=== PATIENT | female | born 1940 | race Caucasian/White ===

== ENCOUNTER 2017-03-06 00:25 | Emergency (ER) | payer MEDICARE ==
[2017-03-06] MEDS ORDERED: Lactated Ringers 1,000 ML IV SCH (01:00)
[2017-03-06] MEDS ORDERED: Sodium Chloride 0.9% 10 ML Syringe FLUSH PRN (01:00)
[2017-03-06] MEDS ORDERED: Gentamicin 0.3% Ophth Soln 5 ML Bottle EYERT STA (01:04)
--- NOTE | 2017-03-06 01:04 | EDM.PDOC ---
ED HPI GENERAL MEDICAL PROBLEM - General Chief Complaint: Respiratory Problem Stated Complaint: COUGH / EYE OOZING / HX OF COPD Time Seen by Provider: 03/06/17 00:50 Source of Information: Reports: Patient, RN Notes Reviewed History Limitations: Reports: No Limitations - History of Present Illness INITIAL COMMENTS - FREE TEXT/NARRATIVE: 76-year-old female presents emergency department day complaint of shortness of breath and eye drainage of the right eye, she states she's been ill for about 5 days has had fevers on and off cough without sputum production and her eye started producing discharge this morning does have a known history of chronic obstructive pulmonary disease as well as chronic atrial fibrillation has not taken her medications today - Related Data Allergies Allergy/AdvReac Type Severity Reaction Status Date / Time No Known Allergies Allergy Verified 07/20/15 18:54 Home Meds: Home Meds Albuterol Sulfate [Proair Hfa] 2 puff INH Q6H 03/17/15 [History] Aspirin [Navneet Chewable Aspirin] 1 tab PO DAILY 03/17/15 [History] Calcium Carbonate [Tums] 1 tab PO ASDIRECTED 03/17/15 [History] Calcium Carbonate/Vitamin D3 [Calcium 600 + Vit D 200] 1 tab PO BID 03/17/15 [ History] EPINEPHrine [Epipen] 1 injection SUBCUT ASDIRECTED 03/17/15 [History] Metoprolol Succinate [Toprol XL] 25 mg PO BID 03/17/15 [History] Multivitamin [Multivitamins] 1 tab PO DAILY 03/17/15 [History] Naproxen Sodium [Aleve] 1 tab PO ASDIRECTED 03/17/15 [History] Simvastatin [Zocor] 20 mg PO DAILY 03/17/15 [History] Tiotropium [Spiriva HandiHaler] 1 cap INH DAILY 03/17/15 [History] Triamcinolone Acetonide [Triamcinolone Acetonide 0.1% Crm] 1 dose TOP ASDIRECTED 03/17/15 [History] diphenhydrAMINE HCl [Benadryl Allergy] 1 tab PO Q6H PRN 03/17/15 [History] Beclomethasone Dipropionate [Qvar] 40 mcg .XX BID 07/20/15 [History] Pantoprazole Sodium [Protonix] 40 mg PO DAILY 07/20/15 [History] Past Medical History HEENT History: Reports: Impaired Vision Cardiovascular History: Reports: High Cholesterol, Hypertension, SOB on Exertion Respiratory History: Reports: 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: Musculoskeletal History: Reports: Osteoporosis Neurological History: Reports: Concussion - Infectious Disease History Infectious Disease History: Reports: Chicken Pox, Measles, Mumps - Past Surgical History HEENT Surgical History: Reports: Other (See Below) Cardiovascular Surgical History: Reports: Other (See Below) GI Surgical History: Reports: Colonoscopy Social & Family History - Tobacco Use Smoking Status *Q: Never Smoker Second Hand Smoke Exposure: No - Caffeine Use Caffeine Use: Reports: Coffee, Tea - Recreational Drug Use Recreational Drug Use: No ED ROS GENERAL - Review of Systems Review Of Systems: See Below Constitutional: Reports: Fever, Chills HEENT: Reports: Eye Discharge Respiratory: Reports: Shortness of Breath, Cough. Denies: Sputum GI/Abdominal: Reports: No Symptoms : Reports: No Symptoms Musculoskeletal: Reports: No Symptoms Skin: Reports: No Symptoms Neurological: Reports: No Symptoms ED EXAM, GENERAL - Physical Exam Exam: See Below Free Text/Narrative:: General: Female, not in any distress, alert and oriented x3 HEENT: head is atraumatic normocephalic, eyes pupils equal round reactive to light, sclera markedly injected on the right with greenish discharge. Ears tympanic membranes clear and perez landmarks and light reflex are present bilaterally canals are clear. Nose no septal deviation, nares are clear, no blood present. Mouth mucosa is moist and pink no erythema or exudate noted in soft palate, tongue is midline uvula is midline, dentition is intact. Neck: Supple no thyromegaly no tracheal deviation. Nodes: Cervical nodes subclavicular nodes nontender no palpable lymphadenopathy noted. Lungs: clear to auscultation bilaterally with symmetrical respirations, no adventitious noise appreciated. CV: Regular rate and rhythm S1 and S2 appreciated no murmurs rubs or gallops noted. Abdomen: Soft, nontender, no palpable masses or organomegaly appreciated, no distention no guarding bowel sounds are present . Neuro: Cranial nerves II through XII grossly intact Skin: Warm and dry, intact Extremities: No lower extremity edema appreciated Course - Vital Signs Last Recorded V/S: Last Vital Signs Temp 99.0 F 03/06/17 00:44 Pulse 130 H 03/06/17 02:39 Resp 17 03/06/17 01:46 BP 177/81 H 03/06/17 02:39 Pulse Ox 97 03/06/17 01:46 - Orders/Labs/Meds Orders: Active Orders 24 hr Category Date Time Status Cardiac Monitoring [RC] .As Directed Care 03/06/17 01:00 Active EKG Documentation Completion [RC] ASDIRECTED Care 03/06/17 01:01 Active Peripheral IV Care [RC] . DIRECTED Care 03/06/17 01:00 Active Chest 1V Frontal [CR] Stat Exams 03/06/17 01:01 Taken Lactated Ringers [Ringers, Lactated] 1,000 ml Med 03/06/17 01:00 Active IV .BOLUS Sodium Chloride 0.9% [Saline Flush] Med 03/06/17 01:00 Active 10 ml FLUSH ASDIRECTED PRN Peripheral IV Insertion Adult [OM.PC] Stat Oth 03/06/17 01:00 Ordered EKG 12 Lead [EK] Stat Ther 03/06/17 01:00 Ordered Medication Orders Lactated Ringer's (Ringers, Lactated) 1,000 mls @ 999 mls/hr IV .BOLUS MALAIKA Last Admin: 03/06/17 01:21 Dose: 999 mls/hr Sodium Chloride (Saline Flush) 10 ml FLUSH ASDIRECTED PRN PRN Reason: Keep Vein Open Last Admin: 03/06/17 01:21 Dose: 10 ml Labs: Laboratory Tests 03/06/17 03/06/17 03/06/17 Range/Units 01:15 01:15 01:15 WBC 14.1 H (4.5-11.0) K/uL RBC 4.72 (3.30-5.50) M/uL Hgb 12.8 (12.0-15.0) g/dL Hct 40.1 (36.0-48.0) % MCV 85 (80-98) fL MCH 27 (27-31) pg MCHC 32 (32-36) % Plt Count 281 (150-400) K/uL Neut % (Auto) 80 H (36-66) % Lymph % (Auto) 9 L (24-44) % [place] % (Auto) 9 H (2-6) % Eos % (Auto) 1 L (2-4) % Baso % (Auto) 0 (0-1) % Sodium 138 L (140-148) mmol/L Potassium 4.2 (3.6-5.2) mmol/L Chloride 102 (100-108) mmol/L Carbon Dioxide 26 (21-32) mmol/L Anion Gap 14.2 H (5.0-14.0) mmol/L BUN 15 (7-18) mg/dL Creatinine 1.1 H (0.6-1.0) mg/dL Est Cr Clr Drug Dosing 32.23 mL/min Estimated GFR (MDRD) 49 L (>60) Glucose 126 H (74-106) mg/dL Lactic Acid 1.4 (0.4-2.0) mmol/L Calcium 8.9 (8.5-10.1) mg/dL Total Bilirubin 0.6 D (0.2-1.0) mg/dL AST 65 H D (15-37) U/L ALT 87 H (12-78) U/L Alkaline Phosphatase 185 H (46-116) U/L Total Protein 7.0 (6.4-8.2) g/dL Albumin 3.3 L (3.4-5.0) g/dL Globulin 3.7 H (2.3-3.5) g/dL Albumin/Globulin Ratio 0.9 L (1.2-2.2) Meds: Medications Generic Name Dose Route Start Last Admin Trade Name Frereggie PRN Reason Stop Dose Admin Lactated Ringer's 1,000 mls @ 999 mls/hr 03/06/17 01:00 03/06/17 01:21 Ringers, Lactated IV 999 mls/hr .BOLUS MALAIKA Administration Sodium Chloride 10 ml 03/06/17 01:00 03/06/17 01:21 Saline Flush FLUSH 10 ml ASDIRECTED PRN Administration Keep Vein Open Discontinued Medications Generic Name Dose Route Start Last Admin Trade Name Freq PRN Reason Stop Dose Admin Gentamicin Sulfate 2 ml 03/06/17 01:04 03/06/17 01:23 Garamycin 0.3% Ophth Soln EYERT 03/06/17 01:05 3 drop NOW STA Administration Doxycycline Hyclate 100 mg/ 100 mls @ 100 mls/hr 03/06/17 02:50 03/06/17 03: 00 Sodium Chloride IV 03/06/17 03:49 100 mls/hr ONETIME ONE Administration Metoprolol Tartrate 50 mg 03/06/17 02:33 03/06/17 02:37 Lopressor PO 03/06/17 02:34 50 mg ONETIME ONE Administration Departure - Departure Time of Disposition: 06:18 Disposition: Home, Self-Care 01 Condition: Good Clinical Impression: Paroxysmal atrial fibrillation, Bronchitis Conjunctivitis Qualifiers: Conjunctivitis type: acute Acute conjunctivitis type: bacterial Laterality: right Qualified Code(s): H10.31 - Unspecified acute conjunctivitis, right eye - Discharge Information Referrals: PCP,None [Primary Care Provider] - Forms: ED Department Discharge Additional Instructions: Take full course of antibiotics, use the eyedrops every 4 hours until the eyes clear continue to use warm compresses to clear away discharge follow-up with your eye care provider on Tuesday of next week if no improvement. Call or return to the emergency department worsening of symptoms - My Orders Last 24 Hours: My Active Orders 03/06/17 01:00 Cardiac Monitoring [RC] .As Directed Peripheral IV Care [RC] . DIRECTED Lactated Ringers [Ringers, Lactated] 1,000 ml IV .BOLUS Sodium Chloride 0.9% [Saline Flush] 10 ml FLUSH ASDIRECTED PRN Peripheral IV Insertion Adult [OM.PC] Stat EKG 12 Lead [EK] Stat 03/06/17 01:01 EKG Documentation Completion [RC] ASDIRECTED Chest 1V Frontal [CR] Stat - Assessment/Plan Last 24 Hours: My Active Orders 03/06/17 01:00 Cardiac Monitoring [RC] .As Directed Peripheral IV Care [RC] . DIRECTED Lactated Ringers [Ringers, Lactated] 1,000 ml IV .BOLUS Sodium Chloride 0.9% [Saline Flush] 10 ml FLUSH ASDIRECTED PRN Peripheral IV Insertion Adult [OM.PC] Stat EKG 12 Lead [EK] Stat 03/06/17 01:01 EKG Documentation Completion [RC] ASDIRECTED Chest 1V Frontal [CR] Stat Plan: Assessment Acuity = acute Site and laterality = right eye conjunctivitis, bronchitis complicated patient with known history of paroxysmal atrial fibrillation Etiology = probable bacterial cause Manifestations = right eye discharge Location of injury = Home Lab values = WBC elevated at 14.1 consistent with leukocytosis creatinine elevated at 1.1 consistent chronic renal failure stage GIII a AST elevated at 65 ALTs elevated at 57 consistent mild elevated liver enzymes, albumin low at 3.3 consistent hypoalbuminemia, EKG demonstrates atrial fibrillation, chest x- ray I did review films myself I cannot appreciate any acute process, the official read from radiology is pending Plan She was restarted on her home medications after starting her metoprolol she did spontaneously convert she was started on gentamicin eyedrops this to be 1-2 drops in her right eye every 4 hours until clear, also started on doxycycline 100 mg by mouth twice a day 7 days was given an IV dose in the emergency department she is to follow-up with her eye care provider in 2 days if no improvement This note was dictated using [employer] voice recognition software please call with any questions on syntax or philippe.
[2017-03-06] MEDS ORDERED: Metoprolol Tartrate 50 MG Tab PO ONE (02:33)
[2017-03-06] MEDS ORDERED: Doxycycline 100 MG in Sodium Chloride 0.9% 100 ML IV ONE (02:50)
[2017-03-06 06:20] VITALS: BP 134/81
--- NOTE | 2017-03-08 09:19 | CR ---
Chest 1V Frontal INDICATION: Hypoxic COMPARISON: 03/17/2015 FINDINGS: AP portable chest. Heart size normal. No infiltrates or pleural effusions. Slightly elevated right hemidiaphragm probabl y unchanged given difference in technique.
== END 2017-03-06 06:25 | disposition home or self-care (01) ==
LOC: JP.ED 00:25
DX: I48.0 Paroxysmal atrial fibrillation (principal); J40 Bronchitis, not specified as acute or chronic; H10.31 Unspecified acute conjunctivitis, right eye; I10 Essential (primary) hypertension; E78.00 Pure hypercholesterolemia, unspecified; J44.9 Chronic obstructive pulmonary disease, unspecified; Z79.82 Long term (current) use of aspirin; Z79.899 Other long term (current) drug therapy
CPT/HCPCS: 36415; 71010; 80053; 83605; 85025; 93005; 96361; 96365; 99285; A9270; J7030; J7050; J7120; 93010; 99284

== ENCOUNTER 2017-09-25 11:51 | Emergency (ER) | payer MEDICARE ==
[2017-09-25 12:35] VITALS: BP 148/87
[2017-09-25] MEDS ORDERED: Acetaminophen/HYDROcodone 325-10 MG Tab PO ONE (13:05)
--- NOTE | 2017-09-25 13:18 | EDM.PDOC ---
ED HPI GENERAL MEDICAL PROBLEM - General Chief Complaint: Lower Extremity Injury/Pain Stated Complaint: PAIN SHOOTING THROUGH LEG Time Seen by Provider: 09/25/17 13:00 Source of Information: Reports: Patient History Limitations: Reports: No Limitations - History of Present Illness INITIAL COMMENTS - FREE TEXT/NARRATIVE: 76-year-old female who had an intravascular procedure, and ablation 5 days ago is in with left groin pain. The left and right groins were both used for access. She is on Xarelto. She was having some moderate pain up until the last 24 hours, it's become more significant and she's having trouble ambulating. No fever or chills. She does have significant bruising but no swelling or firmness. No redness or warmth. Onset: Gradual Duration: Day(s): (Pain has been present for 5 days, worse last 24 hours) Location: Reports: Lower Extremity, Left Quality: Reports: Pressure, Sharp Severity: Moderate Worsens with: Reports: Movement Associated Symptoms: Reports: No Other Symptoms - Related Data Allergies Allergy/AdvReac Type Severity Reaction Status Date / Time No Known Allergies Allergy Verified 07/20/15 18:54 Home Meds: Home Meds Calcium Carbonate [Tums] 1 tab PO ASDIRECTED 03/17/15 [History] Calcium Carbonate/Vitamin D3 [Calcium 600 + Vit D 200] 1 tab PO DAILY 03/17/15 [ History] EPINEPHrine [Epipen] 1 injection SUBCUT ASDIRECTED 03/17/15 [History] Metoprolol Succinate [Toprol XL] 50 mg PO BID 03/17/15 [History] Simvastatin [Zocor] 20 mg PO DAILY 03/17/15 [History] Tiotropium [Spiriva HandiHaler] 1 cap INH DAILY 03/17/15 [History] Triamcinolone Acetonide [Triamcinolone Acetonide 0.1% Crm] 1 dose TOP ASDIRECTED 03/17/15 [History] Pantoprazole Sodium [Protonix] 40 mg PO DAILY 07/20/15 [History] Fluticasone/Salmeterol [Advair 100-50] 1 inh PO DAILY 09/25/17 [History] Rivaroxaban [Xarelto] 15 mg PO DAILY 09/25/17 [History] Past Medical History HEENT History: Reports: Impaired Vision Cardiovascular History: Reports: Afib, High Cholesterol, Hypertension, SOB on Exertion 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: Musculoskeletal History: Reports: Osteoporosis Neurological History: Reports: Concussion - Infectious Disease History Infectious Disease History: Reports: Chicken Pox, Measles, Mumps, Rubella - Past Surgical History HEENT Surgical History: Reports: Other (See Below) Other HEENT Surgeries/Procedures: left ear skin graft on ear drum Cardiovascular Surgical History: Reports: Cardiac Ablation, Other (See Below) Other Cardiovascular Surgeries/Procedures: 09/19 cardiac ablation Respiratory Surgical History: Reports: None GI Surgical History: Reports: Colonoscopy Neurological Surgical History: Reports: None Social & Family History - Family History Family Medical History: Noncontributory - Tobacco Use Smoking Status *Q: Never Smoker Second Hand Smoke Exposure: No - Caffeine Use Caffeine Use: Reports: Coffee - Recreational Drug Use Recreational Drug Use: No Review of Systems - Review of Systems Review Of Systems: See Below Constitutional: Denies: Fever Respiratory: Denies: Shortness of Breath GI/Abdominal: Denies: Abdominal Pain, Nausea, Vomiting Skin: Reports: Bruising Neurological: Denies: Paresthesia Psychiatric: Reports: No Symptoms ED EXAM, GENERAL - Physical Exam Exam: See Below Exam Limited By: No Limitations General Appearance: Alert, No Apparent Distress Respiratory/Chest: No Respiratory Distress GI/Abdominal: Non-Tender Extremities: Other (Exam is otherwise limited to the lower extremities. There is ecchymosis in both groins, more in the left than right. There is no firmness , hematoma, redness or warmth. No distal peripheral edema.) Course - Vital Signs Last Recorded V/S: Last Vital Signs Temp 97.8 F 09/25/17 12:35 Pulse 86 09/25/17 12:35 Resp 17 09/25/17 12:35 BP 148/87 H 09/25/17 12:35 Pulse Ox 93 L 09/25/17 12:35 - Orders/Labs/Meds Meds: Medications Discontinued Medications Generic Name Dose Route Start Last Admin Trade Name Freq PRN Reason Stop Dose Admin Hydrocodone Bitart/Acetaminophen 1 tab 09/25/17 13:05 09/25/17 13:10 [place] 325-10 Mg PO 09/25/17 13:06 1 tab ONETIME ONE Administration - Re-Assessments/Exams Free Text/Narrative Re-Assessment/Exam: 09/25/17 13:17 Patient was given 10 mg [place] and observed for the next 30 minutes. 09/25/17 14:02 After 40 minutes the patient was able to move her leg with much less pain. She was discharged with 10 additional hydrocodone to use as prescribed for additional pain control, and has a recheck tomorrow in [place] with internal medicine, they can reexamine the leg at that time. Departure - Departure Time of Disposition: 14:16 Disposition: Home, Self-Care 01 Condition: Good Clinical Impression: Leg pain, left Contusion of leg, left Qualifiers: Encounter type: initial encounter Qualified Code(s): S80.12XA - Contusion of left lower leg, initial encounter - Discharge Information Instructions: Contusion, [id number] Referrals: Jeovany Brown MD [Primary Care Provider] - Forms: ED Department Discharge Care Plan Goals: Continue your current medications, add stronger pain medication as directed if needed. Continue activity as tolerated and recheck tomorrow as scheduled.
== END 2017-09-25 14:16 | disposition home or self-care (01) ==
LOC: JP.ED 11:51
DX: S80.12XA Contusion of left lower leg, initial encounter (principal); I10 Essential (primary) hypertension; E78.00 Pure hypercholesterolemia, unspecified; J44.9 Chronic obstructive pulmonary disease, unspecified; Z79.899 Other long term (current) drug therapy; X58.XXXA Exposure to other specified factors, initial encounter
CPT/HCPCS: 99283; A9270

== ENCOUNTER 2017-11-10 07:50 | Day surgery (SDC) | payer MEDICARE ==
[2017-11-10] MEDS: Dextrose 5%-Lactated Ringers 1,000 ML IV SCH (08:56)
[2017-11-10] MEDS ORDERED: Propofol 200 MG/20 ML SDV ONE (09:47)
[2017-11-10] MEDS ORDERED: fentaNYL 100 MCG/2 ML SDV ONE (09:47)
[2017-11-10] MEDS: Glycopyrrolate 0.2 MG/ML 2 ML SDV IVPUSH ONE (10:15)
[2017-11-10] MEDS ORDERED: Fluconazole/Normal Saline 200 MG in Premix Bag 1 BAG IV ONE (11:07)
[2017-11-10] MEDS: Ondansetron 4 MG/2 ML SDV IVPUSH ONE (12:26)
[2017-11-10 13:49] VITALS: BP 157/76
--- NOTE | 2017-11-16 14:19 | OR ---
DATE OF PROCEDURE: 11/10/2017 PREOPERATIVE DIAGNOSIS: Worsening gastroesophageal reflux disease. POSTOPERATIVE DIAGNOSES: 1. Moderate-sized hiatal hernia with active gastroesophageal reflux disease and wide open esophagogastric junction. 2. Fungal overgrowth of esophagus. OPERATIVE PROCEDURES: Esophagogastroduodenoscopy with biopsies of esophagogastric junction. ANESTHESIA: IV sedation. INDICATION FOR PROCEDURE: This is a 76-year-old presenting with worsening gastroesophageal reflux symptoms. After preoperative evaluation and discussion, she wished to proceed with upper GI endoscopy with biopsies and/or dilation as indicated. Potential risks including bleeding and perforation were discussed, and the patient wishes to proceed. DETAILS OF PROCEDURE: The patient was taken to the operating room and placed in a left lateral decubitus position. IV sedation was administered, after which the upper GI endoscope was passed orally through the length of the esophagus, into the stomach with retroflexion view of the fundus, and thereafter through the pyloric channel and into the junction of the third and fourth portions of the duodenum. Findings included normal hypopharynx, larynx, upper esophageal sphincter, and esophageal body. At the EG junction, the patient was noted to have a moderate hiatal hernia measuring around 2 to 3 cm and quite active gastroesophageal reflux disease with the distal esophageal mucosa being markedly edematous and friable. The patient had an essentially wide open esophagogastric junction related to the hiatal hernia. There was a fungal overgrowth in the distal half of the esophagus. There was no stricturing, plaquing, or gross evidence of neoplasia. Remainder of stomach and duodenal exams were unremarkable. At this point, biopsies were obtained from esophagogastric junction and sent for histologic evaluation. Minimal bleeding from the biopsy sites was seen, and the procedure then concluded. The patient was taken to the recovery room in a satisfactory condition. The patient on Protonix 40 mg a day along with Zantac 150 mg b.i.d. and despite that, she is having active gastroesophageal reflux disease. The plan will be to start the patient on Mycostatin swish and swallow 5 mL q.i.d. for the next five days. We will see the patient back on 11/16/2017 to discuss treatment options. Darryn Bedolla MD /[id number]
== END 2017-11-10 14:00 | disposition home or self-care (01) ==
LOC: JP.SDS 07:50
PROVIDERS: ATTEND Surgery
DX: K21.9 Gastro-esophageal reflux disease without esophagitis (principal); K20.9 Esophagitis, unspecified; K22.8 Other specified diseases of esophagus; K44.9 Diaphragmatic hernia without obstruction or gangrene; I10 Essential (primary) hypertension; J44.9 Chronic obstructive pulmonary disease, unspecified; I48.91 Unspecified atrial fibrillation
CPT/HCPCS: 43239; 88305; 88312; J2405; J2704; J3010; J3490; J7042

== ENCOUNTER 2018-03-13 06:53 | Emergency (ER) | payer MEDICARE ==
[2018-03-13 07:15] VITALS: BP 161/55
--- NOTE | 2018-03-13 07:42 | EDM.PDOC ---
ED HPI GENERAL MEDICAL PROBLEM - General Chief Complaint: General Stated Complaint: CHEST PAIN NOT HEART Time Seen by Provider: 03/13/18 07:20 Source of Information: Reports: Patient, RN Notes Reviewed History Limitations: Reports: No Limitations - History of Present Illness INITIAL COMMENTS - FREE TEXT/NARRATIVE: 77-year-old female presents to the emergency department today with complaint of painful red left breast, she thinks this is been ongoing for the last couple days she has no other symptoms fever nausea vomiting shortness of breath, she recently had hiatal hernia repair she is postop about 2 weeks she feels that has been going well for her she does have follow-up with her general surgeon in 2 days Left Breast Pain Score (Numeric/FACES): 4 - Related Data Allergies Allergy/AdvReac Type Severity Reaction Status Date / Time No Known Allergies Allergy Verified 03/03/18 08:14 Home Meds: Home Meds Calcium Carbonate/Vitamin D3 [Calcium 600 + Vit D 200] 1 tab PO DAILY 03/17/15 [ History] EPINEPHrine [Epipen] 1 injection SUBCUT ASDIRECTED 03/17/15 [History] Metoprolol Succinate [Toprol XL] 50 mg PO DAILY 03/17/15 [History] Simvastatin [Zocor] 20 mg PO DAILY 03/17/15 [History] Tiotropium [Spiriva HandiHaler] 1 cap INH DAILY 03/17/15 [History] Triamcinolone Acetonide [Triamcinolone Acetonide 0.1% Crm] 1 dose TOP ASDIRECTED 03/17/15 [History] Pantoprazole Sodium [Protonix] 40 mg PO DAILY 07/20/15 [History] Rivaroxaban [Xarelto] 15 mg PO DAILY 09/25/17 [History] Acetaminophen 500 mg PO Q6H 11/08/17 [History] Albuterol [Ventolin HFA] 2 puff PO Q6H PRN 11/08/17 [History] raNITIdine HCl [Ranitidine HCl] 150 mg PO BID 11/08/17 [History] Ascorbic Acid [Vitamin C] 500 mg PO DAILY 03/01/18 [History] Ferrous Sulfate, Dried [Iron] 125 mg PO DAILY 03/01/18 [History] Amoxicillin/Potassium Clav [Augmentin 875-125 Tablet] 1 each PO BID #14 tablet 03/13/18 [Rx] Past Medical History HEENT History: Reports: Allergic Rhinitis, Cataract, Hard of Hearing, Impaired Vision, Other (See Below) Other HEENT History: wears glasses Cardiovascular History: Reports: Afib, Arrhythmia, High Cholesterol, Hypertension Respiratory History: Reports: Asthma, COPD, SOB Gastrointestinal History: Reports: Gastritis, GERD, Hiatal Hernia Genitourinary History: Reports: Chronic Renal Insuffiency 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: Musculoskeletal History: Reports: Osteoporosis Neurological History: Reports: Concussion Endocrine/Metabolic History: Reports: Obesity/BMI 30+ Hematologic History: Reports: Anemia, Iron Deficiency Dermatologic History: Reports: Other (See Below) Other Dermatologic History: "white stuff on my feet" - Infectious Disease History Infectious Disease History: Reports: Chicken Pox, Measles, Mumps - Past Surgical History HEENT Surgical History: Reports: Other (See Below) Other HEENT Surgeries/Procedures: left ear skin graft on ear drum Cardiovascular Surgical History: Reports: Cardiac Ablation, Other (See Below) Other Cardiovascular Surgeries/Procedures: 09/19 cardiac ablation Respiratory Surgical History: Reports: None GI Surgical History: Reports: Colonoscopy, EGD Female Surgical History: Reports: None Neurological Surgical History: Reports: None Musculoskeletal Surgical History: Reports: None Social & Family History - Family History Family Medical History: Noncontributory - Tobacco Use Smoking Status *Q: Never Smoker - Caffeine Use Caffeine Use: Reports: Coffee - Recreational Drug Use Recreational Drug Use: No ED ROS GENERAL - Review of Systems Review Of Systems: See Below Constitutional: Denies: Fever, Chills HEENT: Reports: No Symptoms Respiratory: Reports: No Symptoms Cardiovascular: Reports: No Symptoms GI/Abdominal: Reports: No Symptoms : Reports: No Symptoms Skin: Reports: Rash ED EXAM, GENERAL - Physical Exam Exam: See Below Free Text/Narrative:: Examination of the left breast with patient's permission reveals erythema around the areola , areas warm to the touch and tender to the touch no breaks in the skin or appreciated. Surgical wounds of the abdomen are clean dry and intact Exam Limited By: No Limitations General Appearance: Alert, WD/WN, No Apparent Distress Respiratory/Chest: No Respiratory Distress, Lungs Clear, Normal Breath Sounds, No Accessory Muscle Use Cardiovascular: Regular Rate, Rhythm, No Murmur GI/Abdominal: Soft, Non-Tender Course - Vital Signs Last Recorded V/S: Last Vital Signs Temp 97.5 F 03/13/18 07:09 Pulse 66 03/13/18 07:09 Resp 17 03/13/18 07:09 BP 161/55 H 03/13/18 07:09 Pulse Ox 90 L 03/13/18 07:09 Departure - Departure Time of Disposition: 07:51 Disposition: Home, Self-Care 01 Condition: Good Clinical Impression: Mastitis, left, acute - Discharge Information Referrals: PCP,None [Primary Care Provider] - Additional Instructions: take full course of antibiotics, your antibiotics have been faxed to [facility] pharmacy, keep your follow-up appointment with general surgery on Tuesday of this week - Assessment/Plan Plan: Assessment Acuity = acute Site and laterality = nonlactating mastitis Etiology = suspicious for bacterial cause Manifestations = rash, pain Location of injury = Home Lab values = none Plan Elected to treat empirically with Augmentin 875 by mouth twice a day 7 days she has a follow-up with her general surgeon in 2 days, she will use Tylenol 3 for pain control that she has used in the past. This note was dictated using [employer] voice recognition software please call with any questions on syntax or grammar.
== END 2018-03-13 08:12 | disposition home or self-care (01) ==
LOC: JP.ED 06:53
DX: N61.0 Mastitis without abscess (principal); I12.9 Hypertensive chronic kidney disease with stage 1 through stage 4 chronic kidney disease, or unspecified chronic kidney disease; N18.9 Chronic kidney disease, unspecified; J44.9 Chronic obstructive pulmonary disease, unspecified; Z79.899 Other long term (current) drug therapy
CPT/HCPCS: 99283; 99284

== ENCOUNTER 2018-05-05 07:53 | Emergency (ER) | payer MEDICARE ==
[2018-05-05 09:56] VITALS: BP 164/77
--- NOTE | 2018-05-05 10:27 | EDM.PDOC ---
ED HPI GENERAL MEDICAL PROBLEM - General Chief Complaint: Gastrointestinal Problem Stated Complaint: VIA [facility] Time Seen by Provider: 05/05/18 10:27 Source of Information: Reports: Patient History Limitations: Reports: No Limitations - History of Present Illness INITIAL COMMENTS - FREE TEXT/NARRATIVE: This lady comes in possibly spur some rectal bleeding. She went to the bathroom this morning and she said there was a lot of blood in it. She denies any urinary symptoms. She had some type of hiatal hernia surgery at the end of February and ever since then she's had some vague abdominal pain off and on. She does take an anti-coagulant for atrial fibrillation. No new abdominal pain since then. She denies constipation and has a daily bowel movement. Colonoscopy 5 years ago. Lower Abdomen Pain Score (Numeric/FACES): 4 - Related Data Allergies Allergy/AdvReac Type Severity Reaction Status Date / Time bee venom protein (honey bee) Allergy Hives Verified 05/05/18 08:02 dog dander Allergy Hives Verified 05/05/18 08:02 Home Meds: Home Meds Calcium Carbonate/Vitamin D3 [Calcium 600 + Vit D 200] 1 tab PO DAILY 03/17/15 [ History] Metoprolol Succinate [Toprol XL] 50 mg PO DAILY 03/17/15 [History] Simvastatin [Zocor] 20 mg PO DAILY 03/17/15 [History] Tiotropium [Spiriva HandiHaler] 1 cap INH DAILY 03/17/15 [History] Pantoprazole Sodium [Protonix] 40 mg PO DAILY 07/20/15 [History] Rivaroxaban [Xarelto] 15 mg PO DAILY 09/25/17 [History] Acetaminophen 500 mg PO Q6H 11/08/17 [History] Albuterol [Ventolin HFA] 2 puff PO Q6H PRN 11/08/17 [History] Ascorbic Acid [Vitamin C] 500 mg PO DAILY 03/01/18 [History] Ferrous Sulfate, Dried [Iron] 125 mg PO DAILY 03/01/18 [History] Past Medical History HEENT History: Reports: Allergic Rhinitis, Cataract, Hard of Hearing, Impaired Vision, Other (See Below) Other HEENT History: wears glasses Cardiovascular History: Reports: Afib, Arrhythmia, High Cholesterol, Hypertension Respiratory History: Reports: Asthma, COPD, SOB Gastrointestinal History: Reports: Gastritis, GERD, Hiatal Hernia Genitourinary History: Reports: Chronic Renal Insuffiency [employer] HELPER History: Reports: Musculoskeletal History: Reports: Osteoporosis Neurological History: Reports: Concussion Endocrine/Metabolic History: Reports: Obesity/BMI 30+ Hematologic History: Reports: Anemia, Iron Deficiency Dermatologic History: Reports: Other (See Below) Other Dermatologic History: "white stuff on my feet" - Infectious Disease History Infectious Disease History: Reports: Chicken Pox, Measles, Mumps - Past Surgical History HEENT Surgical History: Reports: Other (See Below) Other HEENT Surgeries/Procedures: left ear skin graft on ear drum Cardiovascular Surgical History: Reports: Cardiac Ablation, Other (See Below) Other Cardiovascular Surgeries/Procedures: 09/19 cardiac ablation Respiratory Surgical History: Reports: None GI Surgical History: Reports: Colonoscopy, EGD Female Surgical History: Reports: None Neurological Surgical History: Reports: None Musculoskeletal Surgical History: Reports: None Social & Family History - Family History Family Medical History: Noncontributory - Tobacco Use Smoking Status *Q: Never Smoker - Caffeine Use Caffeine Use: Reports: Coffee - Recreational Drug Use Recreational Drug Use: No ED ROS GENERAL - Review of Systems Review Of Systems: See Below Constitutional: Reports: No Symptoms HEENT: Reports: No Symptoms Respiratory: Reports: No Symptoms Cardiovascular: Reports: No Symptoms Endocrine: Reports: No Symptoms GI/Abdominal: Reports: Abdominal Pain (See history of present illness) : Reports: No Symptoms Musculoskeletal: Reports: No Symptoms Skin: Reports: No Symptoms Neurological: Reports: No Symptoms Psychiatric: Reports: No Symptoms ED EXAM, GI/ABD - Physical Exam Exam: See Below Exam Limited By: No Limitations General Appearance: Alert, WD/WN, No Apparent Distress Respiratory/Chest: Lungs Clear Cardiovascular: Regular Rate, Rhythm GI/Abdominal Exam: Normal Bowel Sounds, Soft, Tender (Vague mild generalized tenderness. No masses) Rectal (Female) Exam: Normal Exam, Normal Rectal Tone, Other. No: Black Stool, Bloody Stool Back Exam: Normal Inspection Extremities: Normal Inspection Course - Vital Signs Last Recorded V/S: Last Vital Signs Temp 36.9 C 05/05/18 07:56 Pulse 68 05/05/18 09:54 Resp 16 05/05/18 09:54 BP 164/77 H 05/05/18 09:54 Pulse Ox 94 L 05/05/18 09:54 - Orders/Labs/Meds Orders: Active Orders 24 hr Category Date Time Status CULTURE URINE [RM] Stat Lab 05/05/18 10:16 Received Labs: Laboratory Tests 05/05/18 Range/Units 08:46 Urine Color Red Urine Appearance Turbid Urine pH 6.0 (4.5-8.0) Ur Specific [place] 1.020 (1.008-1.030) Urine Protein 100 H (NEGATIVE) mg/dL Urine Glucose (UA) Normal (NEGATIVE) mg/dL Urine Ketones Negative (NEGATIVE) mg/dL Urine Occult Blood Large (NEGATIVE) Urine Nitrite Negative (NEGATIVE) Urine Bilirubin Negative (NEGATIVE) Urine Urobilinogen Normal (NORMAL) mg/dL Ur Leukocyte Esterase Large (NEGATIVE) Urine RBC Packed H (0-5) Urine WBC 5-10 H (0-5) Ur Epithelial Cells Not seen Amorphous Sediment Not seen Urine Bacteria Many Urine Mucus Not seen - Re-Assessments/Exams Free Text/Narrative Re-Assessment/Exam: 05/05/18 10:31 Lab findings discussed with patient. She'll needed antibiotic or other urinary tract infection and will need to talk with her doctor about the positive Hemoccult. Her Dr. can decide whether or not she needs another colonoscopy. She should continue these are relative. She had problems with sulfa in the past she said it caused diarrhea. Departure - Departure Time of Disposition: 10:23 Disposition: Home, Self-Care 01 Condition: Fair Clinical Impression: Hemorrhagic cystitis - Discharge Information Referrals: PCP,None [Primary Care Provider] - Forms: ED Department Discharge Additional Instructions: You have a bladder infection that is causing the bleeding. This is very common especially if taking a blood thinner. Take Levaquin 500 mg daily for 1 week. You should get better quickly. Continue taking the blood thinner. If getting worse then contact your doctor or return to the ER. There was a trace of blood in the stool. Talk with your doctor about this. You should be seen in about a week. - My Orders Last 24 Hours: My Active Orders 05/05/18 10:16 CULTURE URINE [RM] Stat - Assessment/Plan Last 24 Hours: My Active Orders 05/05/18 10:16 CULTURE URINE [RM] Stat
== END 2018-05-05 10:55 | disposition home or self-care (01) ==
LOC: JP.ED 07:53
DX: N30.91 Cystitis, unspecified with hematuria (principal); I48.91 Unspecified atrial fibrillation; E78.00 Pure hypercholesterolemia, unspecified; I10 Essential (primary) hypertension; J44.9 Chronic obstructive pulmonary disease, unspecified; Z79.899 Other long term (current) drug therapy; Z91.030 Bee allergy status
CPT/HCPCS: 81001; 82272; 87086; 99283

== ENCOUNTER 2018-06-02 12:44 | Emergency (ER) | payer MEDICARE ==
--- NOTE | 2018-06-02 13:20 | EDM.PDOC ---
ED HPI GENERAL MEDICAL PROBLEM - General Chief Complaint: Gastrointestinal Problem Stated Complaint: DIARRHEA FOR 4 DAYS/WEAK Time Seen by Provider: 06/02/18 13:13 Source of Information: Reports: Patient History Limitations: Reports: No Limitations - History of Present Illness INITIAL COMMENTS - FREE TEXT/NARRATIVE: pt has had some episodes of marked diarrhea. Since feb she has had alot of antibiotics since feb. She has had episodes of diarrhea from time to time. Onset: Other ( Diarrhea started last nite and was very severe. She did have 10- 12 episodes and now she is better. ) Duration: Hour(s): Location: Reports: Abdomen Associated Symptoms: Reports: Weakness Middle Abdomen Pain Score (Numeric/FACES): 3 - Related Data Allergies Allergy/AdvReac Type Severity Reaction Status Date / Time bee venom protein (honey bee) Allergy Hives Verified 05/05/18 08:02 dog dander Allergy Hives Verified 05/05/18 08:02 Home Meds: Home Meds Calcium Carbonate/Vitamin D3 [Calcium 600 + Vit D 200] 1 tab PO DAILY 03/17/15 [ History] Metoprolol Succinate [Toprol XL] 50 mg PO DAILY 03/17/15 [History] Simvastatin [Zocor] 20 mg PO DAILY 03/17/15 [History] Tiotropium [Spiriva HandiHaler] 1 cap INH DAILY 03/17/15 [History] Pantoprazole Sodium [Protonix] 40 mg PO DAILY 07/20/15 [History] Rivaroxaban [Xarelto] 15 mg PO DAILY 09/25/17 [History] Acetaminophen 500 mg PO Q6H 11/08/17 [History] Albuterol [Ventolin HFA] 2 puff PO Q6H PRN 11/08/17 [History] Ascorbic Acid [Vitamin C] 500 mg PO DAILY 03/01/18 [History] Ferrous Sulfate, Dried [Iron] 125 mg PO DAILY 03/01/18 [History] Past Medical History HEENT History: Reports: Allergic Rhinitis, Cataract, Hard of Hearing, Impaired Vision, Other (See Below) Other HEENT History: wears glasses Cardiovascular History: Reports: Afib, Arrhythmia, High Cholesterol, Hypertension Respiratory History: Reports: Asthma, COPD, SOB Gastrointestinal History: Reports: Gastritis, GERD, Hiatal Hernia Genitourinary History: Reports: Chronic Renal Insuffiency 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: Musculoskeletal History: Reports: Osteoporosis Neurological History: Reports: Concussion Endocrine/Metabolic History: Reports: Obesity/BMI 30+ Hematologic History: Reports: Anemia, Iron Deficiency Dermatologic History: Reports: Other (See Below) Other Dermatologic History: "white stuff on my feet" - Infectious Disease History Infectious Disease History: Reports: Chicken Pox, Measles, Mumps - Past Surgical History HEENT Surgical History: Reports: Other (See Below) Other HEENT Surgeries/Procedures: left ear skin graft on ear drum Cardiovascular Surgical History: Reports: Cardiac Ablation, Other (See Below) Other Cardiovascular Surgeries/Procedures: 09/19 cardiac ablation Respiratory Surgical History: Reports: None GI Surgical History: Reports: Colonoscopy, EGD, Hernia Repair/Other Female Surgical History: Reports: Lithotripsy/ESWL Neurological Surgical History: Reports: None Musculoskeletal Surgical History: Reports: None Social & Family History - Family History Family Medical History: Noncontributory - Tobacco Use Smoking Status *Q: Never Smoker - Caffeine Use Caffeine Use: Reports: None - Recreational Drug Use Recreational Drug Use: No ED ROS GENERAL - Review of Systems Review Of Systems: See Below Constitutional: Reports: No Symptoms HEENT: Reports: No Symptoms Respiratory: Reports: No Symptoms Cardiovascular: Reports: No Symptoms Endocrine: Reports: No Symptoms GI/Abdominal: Reports: Diarrhea, Other ( episodes of severe diarrhea. ) : Reports: No Symptoms Musculoskeletal: Reports: No Symptoms Skin: Reports: No Symptoms ED EXAM, GI/ABD - Physical Exam Exam: See Below Text/Narrative:: pt arrived after having a marked episode of diarrhea at home. She has been having episodes on and off. She has been on alot of antibiotics since feb. Exam Limited By: No Limitations General Appearance: Alert, No Apparent Distress, Anxious Ears: Normal TMs Nose: Normal Inspection Throat/Mouth: Normal Inspection Head: Atraumatic Neck: Normal Inspection Respiratory/Chest: No Respiratory Distress Cardiovascular: Regular Rate, Rhythm, Tachycardia GI/Abdominal Exam: Tender, Other (mild diffuse tenderness) (Female) Exam: Deferred Rectal (Female) Exam: Deferred Back Exam: Normal Inspection Extremities: Normal Inspection Neurological: Alert, Oriented, Normal Cognition Course - Vital Signs Last Recorded V/S: Last Vital Signs Temp 35.5 C 06/02/18 13:08 Pulse 60 06/02/18 14:35 Resp 13 06/02/18 13:08 BP 123/48 L 06/02/18 14:35 Pulse Ox 97 06/02/18 14:35 - Orders/Labs/Meds Labs: Laboratory Tests 06/02/18 06/02/18 06/02/18 Range/Units 13:24 13:24 13:55 WBC 5.6 (4.5-11.0) K/uL RBC 4.71 (3.30-5.50) M/uL Hgb 13.4 (12.0-15.0) g/dL Hct 42.2 (36.0-48.0) % MCV 90 (80-98) fL MCH 29 (27-31) pg MCHC 32 (32-36) % Plt Count 255 (150-400) K/uL Neut % (Auto) 56 (36-66) % Lymph % (Auto) 26 (24-44) % [place] % (Auto) 13 H (2-6) % Eos % (Auto) 4 (2-4) % Baso % (Auto) 1 (0-1) % Sodium 138 L (140-148) mmol/L Potassium 4.2 (3.6-5.2) mmol/L Chloride 104 (100-108) mmol/L Carbon Dioxide 23 (21-32) mmol/L Anion Gap 15.2 H (5.0-14.0) mmol/L BUN 23 H D (7-18) mg/dL Creatinine 0.9 (0.6-1.0) mg/dL Est Cr Clr Drug Dosing 38.79 mL/min Estimated GFR (MDRD) > 60 (>60) Glucose 92 (74-106) mg/dL Calcium 8.8 (8.5-10.1) mg/dL Total Bilirubin 0.4 (0.2-1.0) mg/dL AST 40 H (15-37) U/L ALT 49 (12-78) U/L Alkaline Phosphatase 180 H (46-116) U/L C-Reactive Protein 1.51 H (0.0-0.3) mg/dL Total Protein 7.0 (6.4-8.2) g/dL Albumin 3.3 L (3.4-5.0) g/dL Globulin 3.7 H (2.3-3.5) g/dL Albumin/Globulin Ratio 0.9 L (1.2-2.2) Urine Color Urine Appearance Urine pH (4.5-8.0) Ur Specific [place] (1.008-1.030) Urine Protein (NEGATIVE) mg/dL Urine Glucose (UA) (NEGATIVE) mg/dL Urine Ketones (NEGATIVE) mg/dL Urine Occult Blood (NEGATIVE) Urine Nitrite (NEGATIVE) Urine Bilirubin (NEGATIVE) Urine Urobilinogen (NORMAL) mg/dL Ur Leukocyte Esterase (NEGATIVE) Urine RBC (0-5) Urine WBC (0-5) Ur Epithelial Cells Amorphous Sediment Urine Bacteria Urine Mucus 06/02/18 Range/Units 14:37 WBC (4.5-11.0) K/uL RBC (3.30-5.50) M/uL Hgb (12.0-15.0) g/dL Hct (36.0-48.0) % MCV (80-98) fL MCH (27-31) pg MCHC (32-36) % Plt Count (150-400) K/uL Neut % (Auto) (36-66) % Lymph % (Auto) (24-44) % [place] % (Auto) (2-6) % Eos % (Auto) (2-4) % Baso % (Auto) (0-1) % Sodium (140-148) mmol/L Potassium (3.6-5.2) mmol/L Chloride (100-108) mmol/L Carbon Dioxide (21-32) mmol/L Anion Gap (5.0-14.0) mmol/L BUN (7-18) mg/dL Creatinine (0.6-1.0) mg/dL Est Cr Clr Drug Dosing mL/min Estimated GFR (MDRD) (>60) Glucose (74-106) mg/dL Calcium (8.5-10.1) mg/dL Total Bilirubin (0.2-1.0) mg/dL AST (15-37) U/L ALT (12-78) U/L Alkaline Phosphatase (46-116) U/L C-Reactive Protein (0.0-0.3) mg/dL Total Protein (6.4-8.2) g/dL Albumin (3.4-5.0) g/dL Globulin (2.3-3.5) g/dL Albumin/Globulin Ratio (1.2-2.2) Urine Color Yellow Urine Appearance Slightly cloudy Urine pH 5.0 (4.5-8.0) Ur Specific [place] 1.015 (1.008-1.030) Urine Protein Negative (NEGATIVE) mg/dL Urine Glucose (UA) Normal (NEGATIVE) mg/dL Urine Ketones Negative (NEGATIVE) mg/dL Urine Occult Blood Large (NEGATIVE) Urine Nitrite Negative (NEGATIVE) Urine Bilirubin Negative (NEGATIVE) Urine Urobilinogen Normal (NORMAL) mg/dL Ur Leukocyte Esterase Negative (NEGATIVE) Urine RBC 10-20 H (0-5) Urine WBC 0-5 (0-5) Ur Epithelial Cells Many Amorphous Sediment Few Urine Bacteria Not seen Urine Mucus Not seen Meds: Medications Discontinued Medications Generic Name Dose Route Start Last Admin Trade Name Freq PRN Reason Stop Dose Admin Sodium Chloride 1,000 mls @ 999 mls/hr 06/02/18 13:45 06/02/18 14:32 Normal Saline IV 999 mls/hr ASDIRECTED MALAIKA Administration Lactobacillus Rhamnosus 1 cap 06/03/18 16:01 Culturelle PO 06/03/18 16:02 DAILY ONE Lactobacillus Rhamnosus 1 cap 06/02/18 16:16 06/02/18 16:26 Culturelle PO 06/02/18 16:17 1 cap NOW STA Administration - Re-Assessments/Exams Free Text/Narrative Re-Assessment/Exam: 06/02/18 16:04 pt was found to have normal lab work. She did not give stool to check for clostrium while in the ER. Will send equipment home with the pt so it is easier to collect. Departure - Departure Time of Disposition: 16:05 Disposition: Home, Self-Care 01 Condition: Fair Clinical Impression: Diarrhea, Dehydration - Discharge Information Instructions: Dehydration, Adult, [id number], Diarrhea, Adult, [id number], Probiotics Referrals: Jeovany Brown MD [Primary Care Provider] - Forms: ED Department Discharge Care Plan Goals: rtc with a stool fpr clost diff, stool culture and o and p., push fluids, after the speciman is collected bring to the ER.-- then start using imodium 1-2 tabs after each stool, probiotic daily for the next-3 weeks. rtc if this should get worse.
[2018-06-02] MEDS ORDERED: Sodium Chloride 0.9% 1,000 ML IV SCH (13:45)
[2018-06-02 14:49] VITALS: BP 123/48
[2018-06-02] MEDS ORDERED: Lactobacillus Rhamnosus GG (Probiotic) Cap PO STA (16:16)
[2018-06-03] MEDS ORDERED: Lactobacillus Rhamnosus GG (Probiotic) Cap PO ONE (16:01)
== END 2018-06-02 16:35 | disposition home or self-care (01) ==
LOC: JP.ED 12:44
DX: E86.0 Dehydration (principal); R19.7 Diarrhea, unspecified; I10 Essential (primary) hypertension; E78.00 Pure hypercholesterolemia, unspecified; J44.9 Chronic obstructive pulmonary disease, unspecified; K21.9 Gastro-esophageal reflux disease without esophagitis; Z79.899 Other long term (current) drug therapy; Z91.030 Bee allergy status; Z91.09 Other allergy status, other than to drugs and biological substances
CPT/HCPCS: 36415; 80053; 81001; 85025; 86140; 87046; 87177; 87209; 87493; 87899; 96360; 99284; A9270; J7030

== ENCOUNTER → 2018-06-14 | Outpatient (CLI) | payer MEDICARE ==
[~2018-06-14] MED LIST: Barium Sulfate 98% Powder for Susp 340 GM Bottle PO SCH
--- NOTE | 2018-06-14 13:47 | CR ---
Swallowing Function w Video CLINICAL HISTORY: Difficulty swallowing FINDINGS: Patient swallowed thin and thick barium without difficulty. There is no penetration of the airway. The patient had some mild oral phase delay with solids. The there was poor transport of food bolus through the esophagus likely representing presbyesophagus. The limited the lateral image suggests there is some moderate-sized hiatal hernia IMPRESSION: Mild oral phase difficulty Poor antegrade peristalsis in the thoracic esophagus and probable moderate-sized hiatal hernia. An upper GI should be considered See speech pathologist report
== END ==
LOC: JP.DI 08:44
PROVIDERS: ATTEND Surgery
DX: R13.13 Dysphagia, pharyngeal phase (principal); Z98.890 Other specified postprocedural states
CPT/HCPCS: 74230; 74230-26; 92611-GN

== ENCOUNTER 2019-01-12 08:28 | Day surgery (SDC) | payer MEDICARE ==
[2019-01-12] MEDS ORDERED: Dextrose 5%-Lactated Ringers 1,000 ML IV SCH (09:00)
[2019-01-12] MEDS ORDERED: fentaNYL 100 MCG/2 ML SDV ONE (09:42)
[2019-01-12] MEDS ORDERED: Propofol 200 MG/20 ML SDV ONE (09:42)
[2019-01-12] MEDS ORDERED: Iopamidol 612 MG/ML 30 ML SDV PO ONE (12:57)
[2019-01-12 14:06] VITALS: BP 153/63; PULSE 61
--- NOTE | 2019-01-12 14:24 | CRLCT ---
INDICATION: Abdominal pain. CT ABDOMEN AND PELVIS WITHOUT CONTRAST TECHNIQUE: Multidetector CT imaging was performed through the abdomen and pelvis without intravenous contrast administration. Oral contrast was given, however. Coronal and sagittal reconstructions were generated. COMPARISON: 05/19/2018 CT abdomen and pelvis. FINDINGS: Lower chest: Minimal bibasilar lung atelectasis or scarring. Liver: Within normal limits. Gallbladder and bile ducts: No gallbladder wall thickening or calcified gallstones. No biliary dilation identified. Pancreas: Unremarkable. Spleen: Normal. Adrenals: No nodules or masses. Kidneys, ureters, and urinary bladder: No urinary tract stones identified. Previously seen stone in the distal left ureter is no longer visualized. No hydronephrosis. Hypodensity in the lower pole of the left kidney consistent with a renal cyst, as before. No bladder mass or definite wall thickening. Gastrointestinal tract: Postoperative changes at the gastroesophageal junction, as before. Normal caliber small bowel without wall thickening or obstruction. The appendix is normal. There are multiple colon diverticula, most numerous in the sigmoid. Wall thickening of the mid sigmoid colon is noted, with adjacent fat stranding, consistent with diverticulitis. Vascular structures: Normal caliber abdominal aorta with mild atherosclerotic calcifications. Peritoneum: No free air, abscess, or significant free fluid. Lymph nodes: No pathologically enlarged nodes identified. Reproductive organs: No pelvic masses. Bones: Normal for age. IMPRESSION: 1. [id number] diverticulitis of the mid sigmoid colon. No evidence of perforation or abscess. 2. Nonacute additional findings as detailed above. DIONICIO CORTEZ MD [facility] Dictated by Blaine Cortez MD @ 01/12/2019 2:21:02 PM Dictated by: Blaine Cortez MD @ 01/12/2019 14:22:37 (Electronically Signed)
--- NOTE | 2019-01-15 13:25 | OR ---
DATE OF PROCEDURE: 01/12/2019 SURGEON: Darryn Bedolla MD PREOPERATIVE DIAGNOSIS: Anemia. POSTOPERATIVE DIAGNOSES: 1. Upper gastrointestinal endoscopy showing: a. Duodenum diverticulum. b. Intact Nadege fundoplication. c. No bleeding or areas of significant inflammation. 2. Incomplete colonoscopy to mid sigmoid colon with identification of limited colon diverticulosis. OPERATIVE PROCEDURE: 1. Esophagogastroduodenoscopy (44150). 2. Flexible colonoscopy (incomplete) (25616-55). ANESTHESIA: IV sedation. INDICATION FOR PROCEDURE: This is a 78-year-old female presenting with a picture of anemia. She is undergoing upper and lower endoscopy to try to identify any possible GI bleeding sites. Potential risks of the procedure including bleeding and perforation were discussed, and the patient wishes to proceed. Of note, a repeat CBC was obtained today, which showed a hemoglobin now having crept up to 10.8. The MCH and MCHC remain below normal. DETAILS OF PROCEDURE: The patient was taken to the operating room and placed in a left lateral decubitus position. IV sedation was administered, after which the upper GI endoscope was passed orally through the length of the esophagus into the stomach with retroflexion view of the fundus and thereafter through the pyloric channel and into the proximal duodenum. Findings included normal hypopharynx, larynx, upper esophageal sphincter, and esophageal body. At the EG junction, the patient had an intact appearing Nadege effect. There was essentially no gross inflammation at the area of the distal esophagus or within the stomach and retroflexion once again confirmed the Nadege effect, and the remainder of the stomach was unremarkable. When passed through the pyloric channel and then into the 2nd portion of the duodenum, the patient was noted to have duodenal diverticula, to include the ampulla of Vater. Otherwise, the duodenum was entirely unremarkable. The scope was then withdrawn and the procedure then concluded. Attention was taken to the colonoscopy. Initial digital rectal exam was performed, which was unremarkable. Colonoscope was then passed into the rectum with retroflexion revealing uncomplicated hemorrhoidal columns. The scope was able to be passed to roughly 25 cm. Beyond that, we were not able to pass the scope further due to what appeared to be some fixed tortuosity of the course of the sigmoid colon. To that level, a few diverticula were identified, but otherwise the examination was unremarkable. Scope was then withdrawn, and the plan was to proceed with a CT scan of the abdomen, which had been planned previously, due to the patient's chronic abdominal pain, and probable barium enema x-ray to be scheduled to evaluate the remainder of the colon. The patient was taken to the recovery room in satisfactory condition. The postprocedure CT scan of the abdomen was obtained. This showed an area of diverticulitis in the mid sigmoid colon, which was otherwise uncomplicated, i.e. no perforation or abscess. This likely explains the endoscopic findings and relatively fixed tortuosity of the mid sigmoid colon seen endoscopically. The plan at this point will be to initiate a course of Augmentin 875 mg p.o. b.i.d. x10 days, and we will schedule the patient for followup colonoscopy in 1 month. We will schedule this on a day when we have radiologist inhouse, so that if the colonoscopy is once again incomplete, a barium enema could be obtained the same day, so as to avoid the patient needing to have second prep. Darryn Bedolla MD /[id number]
== END 2019-01-12 15:00 | disposition home or self-care (01) ==
LOC: JP.SDS 08:28
PROVIDERS: ATTEND Surgery
DX: D64.9 Anemia, unspecified (principal); K57.10 Diverticulosis of small intestine without perforation or abscess without bleeding; K57.30 Diverticulosis of large intestine without perforation or abscess without bleeding; K64.9 Unspecified hemorrhoids; Z98.890 Other specified postprocedural states
CPT/HCPCS: 36415; 43235; 45330; 74176; 85027; 86850; 86900; 86901; J2704; J3010; J7042; Q9967

== ENCOUNTER 2019-02-12 07:07 | Day surgery (SDC) | payer MEDICARE ==
[2019-02-12] MEDS ORDERED: fentaNYL 100 MCG/2 ML SDV ONE (07:37)
[2019-02-12] MEDS ORDERED: Propofol 200 MG/20 ML SDV ONE (07:37)
[2019-02-12] MEDS ORDERED: Dextrose 5%-Lactated Ringers 1,000 ML IV SCH (08:15)
[2019-02-12] MEDS ORDERED: Ondansetron 4 MG/2 ML SDV ONE (09:39)
[2019-02-12] MEDS ORDERED: Ondansetron 4 MG/2 ML SDV IVPUSH ONE (11:20)
[2019-02-12] MEDS ORDERED: Metoclopramide 10 MG/2 ML SDV IVPUSH ONE (13:00)
[2019-02-12] MEDS ORDERED: Scopolamine 1.5 MG Transdermal Patch TOP ONE (13:00)
[2019-02-12 15:12] VITALS: BP 147/79; PULSE 69
--- NOTE | 2019-02-22 09:42 | OR ---
DATE OF PROCEDURE: 02/12/2019 SURGEON: Darryn Bedolla MD PREOPERATIVE DIAGNOSIS: History of anemia with a recent incomplete colonoscopy secondary to active sigmoid colon diverticulitis. POSTOPERATIVE DIAGNOSES: 1. Left colonic diverticulosis with diverticulitis, now resolved. 2. Otherwise, normal colonic examination. OPERATIVE PROCEDURE: A flexible colonoscopy (12009). ANESTHESIA: IV sedation. INDICATION FOR PROCEDURE: The patient is a 78-year-old who recently presented with some anemia. As a part of workup, she did undergo upper and lower endoscopy. The upper endoscopy was able to completed, but the lower endoscopy needed to be halted due to active sigmoid colon diverticulitis. CT scan was obtained at that time which showed otherwise no complications. The patient has completed a course of oral antibiotics and is generally feels well. Plan is to proceed with a flexible colonoscopy with biopsies and/or polypectomy. Today's exam is scheduled on a day when we have an in-house radiologist, and in the event it is not complete again, we can complement this exam with a barium enema x- ray. Potential risks including bleeding and perforation were discussed, and the patient wishes to proceed. DETAILS OF PROCEDURE: The patient was taken to the operating room and placed in a left lateral decubitus position. IV sedation was administered. Initial digital rectal exam was performed and was unremarkable. Colonoscope was then passed into the rectum with retroflexion revealing uncomplicated hemorrhoidal columns. The scope was then eventually advanced to the level of the cecum. At this point, the patient had some remaining sigmoid colon diverticulosis but no signs of acute inflammation or other complications, such as stricturing at the site of the previous diverticulitis. Apart from that, there were certainly no other abnormalities noted. The scope was then withdrawn and the above findings reconfirmed. The prep was generally quite good, and the patient was taken to the recovery room in satisfactory condition. The plan will be to have the patient follow up with Dr. Jeovany Brown in the [facility] in roughly 1 month with a CBC and iron studies obtained at that appointment. Darryn Bedolla MD /[id number]
== END 2019-02-12 14:40 | disposition home or self-care (01) ==
LOC: JP.SDS 07:07
PROVIDERS: ATTEND Surgery
DX: K57.30 Diverticulosis of large intestine without perforation or abscess without bleeding (principal); K64.9 Unspecified hemorrhoids; D64.9 Anemia, unspecified; J44.9 Chronic obstructive pulmonary disease, unspecified
CPT/HCPCS: 45378; A9270; J2405; J2704; J2765; J3010; J7042; J7121

== ENCOUNTER 2019-03-25 10:08 | Emergency (ER) | payer MEDICARE ==
--- NOTE | 2019-03-25 10:39 | EDM.PDOC ---
ED HPI GENERAL MEDICAL PROBLEM - General Chief Complaint: Neuro Symptoms/Deficits Stated Complaint: MEDICAL [facility]IA [facility] Time Seen by Provider: 03/25/19 10:38 Source of Information: Reports: Patient, EMS History Limitations: Reports: No Limitations - History of Present Illness INITIAL COMMENTS - FREE TEXT/NARRATIVE: when pt woke up this am, She was very dizzy. She felt like the room was spinning and she was nauseated. . She was not able to walk safely. She felt like the room was spinning. She was recenrly found to be anemia with fe defiency. Onset: Today, Sudden Duration: Hour(s): Location: Reports: Head, Generalized Associated Symptoms: Reports: Nausea/Vomiting, Other ( vertigo) headache Pain Score (Numeric/FACES): 4 - Related Data Allergies Allergy/AdvReac Type Severity Reaction Status Date / Time bee venom protein (honey bee) Allergy Hives Verified 03/25/19 10:16 dog dander Allergy Hives Verified 03/25/19 10:16 Home Meds: Home Meds Calcium Carbonate/Vitamin D3 [Calcium 600 + Vit D 200] 1 tab PO DAILY 03/17/15 [ History] Metoprolol Succinate [Toprol XL] 50 mg PO DAILY 03/17/15 [History] Simvastatin [Zocor] 20 mg PO DAILY 03/17/15 [History] Rivaroxaban [Xarelto] 15 mg PO DAILY 09/25/17 [History] Acetaminophen 500 mg PO Q6H 11/08/17 [History] Albuterol [Ventolin HFA] 2 puff PO Q6H PRN 11/08/17 [History] Mag Hydrox/Aluminum Hyd/Simeth [Mylanta Maximum Strength Liq] 5 ml PO Q4HR PRN 01/12/19 [History] Ascorbate Calcium [Vitamin C] 500 mg PO DAILY 03/25/19 [History] Ferrous Sulfate [Iron] 325 mg PO BID 03/25/19 [History] Past Medical History HEENT History: Reports: Allergic Rhinitis, Cataract, Hard of Hearing, Impaired Vision, Other (See Below) Other HEENT History: wears glasses Cardiovascular History: Reports: Afib, Arrhythmia, High Cholesterol, Hypertension Respiratory History: Reports: Asthma, COPD, SOB Gastrointestinal History: Reports: Gastritis, GERD, Hiatal Hernia Genitourinary History: Reports: Chronic Renal Insuffiency CHIL[employer]ER History: Reports: Musculoskeletal History: Reports: Osteoporosis Neurological History: Reports: Concussion Psychiatric History: Reports: Suicide Attempt Endocrine/Metabolic History: Reports: Obesity/BMI 30+ Hematologic History: Reports: Anemia, Iron Deficiency Dermatologic History: Reports: Other (See Below) Other Dermatologic History: "white stuff on my feet" - Infectious Disease History Infectious Disease History: Reports: Chicken Pox, Measles, Mumps - Past Surgical History HEENT Surgical History: Reports: Other (See Below) Other HEENT Surgeries/Procedures: left ear skin graft on ear drum Cardiovascular Surgical History: Reports: Cardiac Ablation, Other (See Below) Other Cardiovascular Surgeries/Procedures: 09/19 cardiac ablation Respiratory Surgical History: Reports: None GI Surgical History: Reports: Colonoscopy, EGD, Hernia Repair/Other Female Surgical History: Reports: Lithotripsy/ESWL Endocrine Surgical History: Reports: None Neurological Surgical History: Reports: None Musculoskeletal Surgical History: Reports: None Dermatological Surgical History: Reports: None Social & Family History - Family History Family Medical History: Noncontributory - Tobacco Use Smoking Status *Q: Never Smoker Second Hand Smoke Exposure: No - Caffeine Use Caffeine Use: Reports: Coffee, Energy Drinks - Recreational Drug Use Recreational Drug Use: No ED ROS GENERAL - Review of Systems Review Of Systems: See Below Constitutional: Reports: No Symptoms HEENT: Reports: No Symptoms Respiratory: Reports: No Symptoms Cardiovascular: Reports: No Symptoms Endocrine: Reports: No Symptoms GI/Abdominal: Reports: Nausea, Other (pt felt nauseated as soon as her dizziness started. ) : Reports: No Symptoms Musculoskeletal: Reports: No Symptoms Skin: Reports: No Symptoms ED EXAM, NEURO - Physical Exam Exam: See Below Text/Narrative:: pt arrived feeling like her head was spinning and she was very off balance. Pt was nauseated. Exam Limited By: No Limitations General Appearance: Alert, Anxious, Mild Distress, Other (pupils are equal and reactive, no nystagmus was noted. ) Ears: Normal TMs Nose: Normal Inspection Throat/Mouth: Normal Inspection Head Exam: Atraumatic Neck: Normal Inspection Respiratory/Chest: No Respiratory Distress Cardiovascular: Regular Rate, Rhythm, Other (near syncope. ) GI/Abdominal: Soft, Non-Tender (Female) Exam: Deferred Rectal (Female) Exam: Deferred Neurological: Alert Back Exam: Normal Inspection Extremities: Normal Inspection Psychiatric: Normal Affect Course - Vital Signs Last Recorded V/S: Last Vital Signs Temp 36 C 03/25/19 12:42 Pulse 71 03/25/19 12:42 Resp 16 03/25/19 12:42 BP 147/65 H 03/25/19 12:42 Pulse Ox 96 03/25/19 12:42 - Orders/Labs/Meds Orders: Active Orders 24 hr Category Date Time Status EKG Documentation Completion [RC] ASDIRECTED Care 03/25/19 10:33 Active Sodium Chloride 0.9% [Normal Saline] 1,000 ml Med 03/25/19 11:00 Active IV ASDIRECTED EKG 12 Lead [EK] Routine Ther 03/25/19 10:33 Ordered Medication Orders Sodium Chloride (Normal Saline) 1,000 mls @ 999 mls/hr IV ASDIRECTED MALAIKA Last Admin: 03/25/19 11:01 Dose: 999 mls/hr Labs: Laboratory Tests 03/25/19 03/25/19 03/25/19 Range/Units 10:33 10:42 10:42 WBC 6.1 (4.5-11.0) K/uL RBC 4.33 (3.30-5.50) M/uL Hgb 10.2 L (12.0-15.0) g/dL Hct 35.8 L (36.0-48.0) % MCV 83 (80-98) fL MCH 24 L (27-31) pg MCHC 29 L (32-36) % Plt Count 230 (150-400) K/uL Neut % (Auto) 70 H (36-66) % Lymph % (Auto) 15 L (24-44) % [place] % (Auto) 10 H (2-6) % Eos % (Auto) 5 H (2-4) % Baso % (Auto) 1 (0-1) % Sodium 140 (140-148) mmol/L Potassium 4.3 (3.6-5.2) mmol/L Chloride 104 (100-108) mmol/L Carbon Dioxide 27 (21-32) mmol/L Anion Gap 9.4 (5.0-14.0) mmol/L BUN 18 (7-18) mg/dL Creatinine 1.1 H (0.6-1.0) mg/dL Est Cr Clr Drug Dosing 31.25 mL/min Estimated GFR (MDRD) 48 L (>60) Glucose 99 (74-106) mg/dL Calcium 8.6 (8.5-10.1) mg/dL Total Bilirubin 0.3 (0.2-1.0) mg/dL AST 26 (15-37) U/L ALT 31 (12-78) U/L Alkaline Phosphatase 150 H (46-116) U/L Troponin I (0.000-0.056) ng/mL Total Protein 6.5 (6.4-8.2) g/dL Albumin 3.3 L (3.4-5.0) g/dL Globulin 3.2 (2.3-3.5) g/dL Albumin/Globulin Ratio 1.0 L (1.2-2.2) Urine Color Yellow (YELLOW) Urine Appearance Clear (CLEAR) Urine pH 6.0 (5.0-8.0) Ur Specific [place] 1.010 (1.008-1.030) Urine Protein Negative (NEGATIVE) mg/dL Urine Glucose (UA) Negative (NEGATIVE) mg/dL Urine Ketones Negative (NEGATIVE) mg/dL Urine Occult Blood Trace-lysed H (NEGATIVE) Urine Nitrite Negative (NEGATIVE) Urine Bilirubin Negative (NEGATIVE) Urine Urobilinogen 0.2 (0.2-1.0) EU/dL Ur Leukocyte Esterase Negative (NEGATIVE) Urine RBC 0-5 (0-5) Urine WBC Not seen (0-5) Ur Epithelial Cells Few Amorphous Sediment Not seen Urine Bacteria Not seen Urine Mucus Not seen 03/25/19 Range/Units 10:49 WBC (4.5-11.0) K/uL RBC (3.30-5.50) M/uL Hgb (12.0-15.0) g/dL Hct (36.0-48.0) % MCV (80-98) fL MCH (27-31) pg MCHC (32-36) % Plt Count (150-400) K/uL Neut % (Auto) (36-66) % Lymph % (Auto) (24-44) % [place] % (Auto) (2-6) % Eos % (Auto) (2-4) % Baso % (Auto) (0-1) % Sodium (140-148) mmol/L Potassium (3.6-5.2) mmol/L Chloride (100-108) mmol/L Carbon Dioxide (21-32) mmol/L Anion Gap (5.0-14.0) mmol/L BUN (7-18) mg/dL Creatinine (0.6-1.0) mg/dL Est Cr Clr Drug Dosing mL/min Estimated GFR (MDRD) (>60) Glucose (74-106) mg/dL Calcium (8.5-10.1) mg/dL Total Bilirubin (0.2-1.0) mg/dL AST (15-37) U/L ALT (12-78) U/L Alkaline Phosphatase (46-116) U/L Troponin I < 0.017 (0.000-0.056) ng/mL Total Protein (6.4-8.2) g/dL Albumin (3.4-5.0) g/dL Globulin (2.3-3.5) g/dL Albumin/Globulin Ratio (1.2-2.2) Urine Color (YELLOW) Urine Appearance (CLEAR) Urine pH (5.0-8.0) Ur Specific [place] (1.008-1.030) Urine Protein (NEGATIVE) mg/dL Urine Glucose (UA) (NEGATIVE) mg/dL Urine Ketones (NEGATIVE) mg/dL Urine Occult Blood (NEGATIVE) Urine Nitrite (NEGATIVE) Urine Bilirubin (NEGATIVE) Urine Urobilinogen (0.2-1.0) EU/dL Ur Leukocyte Esterase (NEGATIVE) Urine RBC (0-5) Urine WBC (0-5) Ur Epithelial Cells Amorphous Sediment Urine Bacteria Urine Mucus Meds: Medications Generic Name Dose Route Start Last Admin Trade Name Freq PRN Reason Stop Dose Admin Sodium Chloride 1,000 mls @ 999 mls/hr 03/25/19 11:00 03/25/19 11:01 Normal Saline IV 999 mls/hr ASDIRECTED MALAIKA Administration Discontinued Medications Generic Name Dose Route Start Last Admin Trade Name Freq PRN Reason Stop Dose Admin Meclizine HCl 25 mg 03/25/19 10:51 03/25/19 11:01 Antivert PO 03/25/19 10:52 25 mg ONETIME ONE Administration Ondansetron HCl 4 mg 03/25/19 10:51 03/25/19 11:03 Zofran IVPUSH 03/25/19 10:52 4 mg ONETIME ONE Administration - Re-Assessments/Exams Free Text/Narrative Re-Assessment/Exam: 03/25/19 13:17 pt had a normal ekg , her head scan did not show acute changes. She is anemic and iron deficient. Her trop was normal. It would appear that the pt has inner ear dysfuntion Departure - Departure Time of Disposition: 13:19 Disposition: Home, Self-Care 01 Condition: Fair Clinical Impression: Inner ear dysfunction, Iron deficiency anemia - Discharge Information Referrals: PCP,None [Primary Care Provider] - Forms: ED Department Discharge Care Plan Goals: encourage fluids, antivert 25 mg tid for vertigo, appt with Dr Stephanie bee or kianna, rtc if symptoms should get alot worse. Sepsis Event Note - Evaluation Sepsis Screening Result: No Definite Risk - Focused Exam Vital Signs: Vital Signs Temp Pulse Resp BP Pulse Ox 03/25/19 12:42 36 C 71 16 147/65 H 96 03/25/19 10:26 35.9 C 66 16 172/65 H 97 03/25/19 10:18 35.9 C 66 16 172/65 H 97 Date Exam was Performed: 03/25/19 Time Exam was Performed: 13:15 - My Orders Last 24 Hours: My Active Orders 03/25/19 10:33 EKG Documentation Completion [RC] ASDIRECTED EKG 12 Lead [EK] Routine 03/25/19 11:00 Sodium Chloride 0.9% [Normal Saline] 1,000 ml IV ASDIRECTED - Assessment/Plan Last 24 Hours: My Active Orders 03/25/19 10:33 EKG Documentation Completion [RC] ASDIRECTED EKG 12 Lead [EK] Routine 03/25/19 11:00 Sodium Chloride 0.9% [Normal Saline] 1,000 ml IV ASDIRECTED
[2019-03-25] MEDS ORDERED: Ondansetron 4 MG/2 ML SDV IVPUSH ONE (10:51)
[2019-03-25] MEDS ORDERED: Meclizine 25 MG Tab PO ONE (10:51)
[2019-03-25] MEDS ORDERED: Sodium Chloride 0.9% 1,000 ML IV SCH (11:00)
--- NOTE | 2019-03-25 12:18 | CRLCT ---
INDICATION: Vertigo. Visual difficulty. TECHNIQUE: Noncontrast CT images were obtained through the brain. COMPARISON: None. FINDINGS: The ventricles and sulci are within normal limits for patient age. No mass effect or midline shift. The perez-white differentiation is maintained. No acute intracranial hemorrhage or pathologic extra-axial fluid collection. Atherosclerotic calcifications in the intracranial internal carotid arteries. The globes are symmetric in size. The calvarium is intact. The visualized paranasal sinuses and mastoid air cells are clear. IMPRESSION: No acute intracranial hemorrhage or mass effect. Please note that all CT scans at this facility use dose modulation, iterative reconstruction, and/or weight-based dosing when appropriate to reduce radiation dose to as low as reasonably achievable. Dictated by Holden Escoto MD @ Mar 25 2019 12:12PM Signed by Dr. Holden Escoto @ Mar 25 2019 12:16PM
[2019-03-25 12:44] VITALS: BP 147/65; PULSE 71
== END 2019-03-25 14:30 | disposition home or self-care (01) ==
LOC: JP.ED 10:08
DX: H83.2X9 Labyrinthine dysfunction, unspecified ear (principal); J44.9 Chronic obstructive pulmonary disease, unspecified; I12.9 Hypertensive chronic kidney disease with stage 1 through stage 4 chronic kidney disease, or unspecified chronic kidney disease; N18.9 Chronic kidney disease, unspecified; E78.00 Pure hypercholesterolemia, unspecified; K21.9 Gastro-esophageal reflux disease without esophagitis; E66.9 Obesity, unspecified; Z68.31 Body mass index [BMI] 31.0-31.9, adult; D50.9 Iron deficiency anemia, unspecified; Z79.899 Other long term (current) drug therapy; Z91.030 Bee allergy status; Z91.048 Other nonmedicinal substance allergy status
CPT/HCPCS: 36415; 70450; 80053; 81001; 84484; 85025; 93005; 93010; 96361; 96374; 99283; 99285-25; A9270-GY; J2405; J7030

== ENCOUNTER 2020-05-14 09:15 | Emergency (ER) | payer MEDICARE ==
--- NOTE | 2020-05-14 09:30 | EDM.PDOC ---
ED HPI GENERAL MEDICAL PROBLEM - General Chief Complaint: Chest Pain Stated Complaint: CHEST PAIN Time Seen by Provider: 05/14/20 09:30 Source of Information: Reports: Patient, Family History Limitations: Reports: No Limitations - History of Present Illness INITIAL COMMENTS - FREE TEXT/NARRATIVE: pt has been having increased chest pain today and has been more sob. Onset: Gradual, Other (pt has been having pain for several weeks. ) Duration: Hour(s): Location: Reports: Chest, Generalized Associated Symptoms: Reports: Chest Pain, Other (pt does feel that the chest pain getsome worse when she exercises. ) Chest Pain Score (Numeric/FACES): 6 - Related Data Allergies Allergy/AdvReac Type Severity Reaction Status Date / Time bee venom protein (honey bee) Allergy Hives Verified 05/14/20 09:38 dog dander Allergy Hives Verified 05/14/20 09:38 Home Meds: Home Meds Calcium Carbonate/Vitamin D3 [Calcium 600 + Vit D 200] 1 tab PO DAILY 03/17/15 [History] Metoprolol Succinate [Toprol XL] 50 mg PO DAILY 03/17/15 [History] Simvastatin [Zocor] 20 mg PO DAILY 03/17/15 [History] Rivaroxaban [Xarelto] 15 mg PO DAILY 09/25/17 [History] Acetaminophen 500 mg PO Q6H 11/08/17 [History] Albuterol [Ventolin HFA] 2 puff PO Q6H PRN 11/08/17 [History] Mag Hydrox/Aluminum Hyd/Simeth [Mylanta Maximum Strength Liq] 5 ml PO Q4HR PRN 01/12/19 [History] Ferrous Sulfate [Iron] 325 mg PO BID 03/25/19 [History] Past Medical History HEENT History: Reports: Allergic Rhinitis, Cataract, Hard of Hearing, Impaired Vision, Other (See Below) Other HEENT History: wears glasses Cardiovascular History: Reports: Afib, Arrhythmia, High Cholesterol, Hypertension Respiratory History: Reports: Asthma, COPD, SOB Gastrointestinal History: Reports: Gastritis, GERD, Hiatal Hernia Genitourinary History: Reports: Chronic Renal Insuffiency [employer]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: Musculoskeletal History: Reports: Osteoporosis Neurological History: Reports: Concussion Psychiatric History: Reports: Suicide Attempt Endocrine/Metabolic History: Reports: Obesity/BMI 30+ Hematologic History: Reports: Anemia, Iron Deficiency Dermatologic History: Reports: Other (See Below) Other Dermatologic History: "white stuff on my feet" - Infectious Disease History Infectious Disease History: Reports: Chicken Pox, Measles, Mumps - Past Surgical History HEENT Surgical History: Reports: Other (See Below) Other HEENT Surgeries/Procedures: left ear skin graft on ear drum Cardiovascular Surgical History: Reports: Cardiac Ablation, Other (See Below) Other Cardiovascular Surgeries/Procedures: 09/19 cardiac ablation Respiratory Surgical History: Reports: None GI Surgical History: Reports: Colonoscopy, EGD, Hernia Repair/Other Female Surgical History: Reports: Lithotripsy/ESWL Endocrine Surgical History: Reports: None Neurological Surgical History: Reports: None Musculoskeletal Surgical History: Reports: None Dermatological Surgical History: Reports: None Social & Family History - Family History Family Medical History: No Pertinent Family History - Caffeine Use Caffeine Use: Reports: Coffee, Energy Drinks ED ROS GENERAL - Review of Systems Review Of Systems: See Below Constitutional: Reports: No Symptoms, Weakness HEENT: Reports: No Symptoms Respiratory: Reports: Shortness of Breath, Other (pt is tender on her chest when it is pressed on. ) Cardiovascular: Reports: Chest Pain, Other (pt has a past history of atrial fib and she has had a ablation about 3 years ago, ) Endocrine: Reports: No Symptoms GI/Abdominal: Reports: No Symptoms Musculoskeletal: Reports: No Symptoms Skin: Reports: No Symptoms ED EXAM, GENERAL - Physical Exam Exam: See Below Free Text/Narrative:: pt arrived with pain in her chest. She states the pain is always there but worse when she exercises. Exam Limited By: No Limitations General Appearance: Alert, Anxious, Mild Distress Ears: Normal TMs Nose: Normal Inspection Throat/Mouth: Normal Inspection Head: Atraumatic Neck: Normal Inspection Respiratory/Chest: No Respiratory Distress, Other (pt has a very good o2 level. Pt is very tender on the chest wall which may be causing some underlying discomfort. ) Cardiovascular: Regular Rate, Rhythm, Bradycardia, Other (pt has a rate of 52. ) GI/Abdominal: Soft, Non-Tender (Female) Exam: Deferred Rectal (Female) Exam: Deferred Back Exam: Normal Inspection Extremities: Normal Inspection, Other (pt does not have sig edema) Neurological: Alert, Oriented, Normal Cognition Psychiatric: Anxious Course - Vital Signs Last Recorded V/S: Last Vital Signs Temp 36.5 C 05/14/20 09:36 Pulse 62 05/14/20 09:36 Resp 13 05/14/20 09:36 BP 187/78 H 05/14/20 09:36 Pulse Ox 99 05/14/20 09:36 - Orders/Labs/Meds Orders: Active Orders 24 hr Category Date Time Status EKG Documentation Completion [RC] ASDIRECTED Care 05/14/20 09:27 Active EKG 12 Lead [EK] Routine Ther 05/14/20 09:27 Ordered Labs: Laboratory Tests 05/14/20 05/14/20 05/14/20 Range/Units 09:39 09:39 09:39 WBC 6.5 (4.5-11.0) K/uL RBC 4.48 (3.30-5.50) M/uL Hgb 12.1 (12.0-15.0) g/dL Hct 39.7 (36.0-48.0) % MCV 89 (80-98) fL MCH 27 (27-31) pg MCHC 31 L (32-36) % Plt Count 260 (150-400) K/uL Neut % (Auto) 63 (36-66) % Lymph % (Auto) 21 L (24-44) % [place] % (Auto) 11 H (2-6) % Eos % (Auto) 5 H (2-4) % Baso % (Auto) 1 (0-1) % D-Dimer, Quantitative 572.47 H (0.0-500.0) ng/mL Sodium 142 (140-148) mmol/L Potassium 4.4 (3.6-5.2) mmol/L Chloride 107 (100-108) mmol/L Carbon Dioxide 25 (21-32) mmol/L Anion Gap 10.2 (5.0-14.0) mmol/L BUN 21 H (7-18) mg/dL Creatinine 1.1 H (0.6-1.0) mg/dL Est Cr Clr Drug Dosing 30.76 mL/min Estimated GFR (MDRD) 48 L (>60) Glucose 91 (74-106) mg/dL Calcium 8.8 (8.5-10.1) mg/dL Total Bilirubin 0.3 (0.2-1.0) mg/dL AST 26 (15-37) U/L ALT 29 (12-78) U/L Alkaline Phosphatase 129 H (46-116) U/L Troponin I (0.000-0.056) ng/mL NT-Pro-B Natriuret Pep (5-450) pg/mL Total Protein 6.8 (6.4-8.2) g/dL Albumin 3.6 (3.4-5.0) g/dL Globulin 3.2 (2.3-3.5) g/dL Albumin/Globulin Ratio 1.1 L (1.2-2.2) Urine Color (YELLOW) Urine Appearance (CLEAR) Urine pH (5.0-8.0) Ur Specific [place] (1.008-1.030) Urine Protein (NEGATIVE) mg/dL Urine Glucose (UA) (NEGATIVE) mg/dL Urine Ketones (NEGATIVE) mg/dL Urine Occult Blood (NEGATIVE) Urine Nitrite (NEGATIVE) Urine Bilirubin (NEGATIVE) Urine Urobilinogen (0.2-1.0) EU/dL Ur Leukocyte Esterase (NEGATIVE) Urine RBC (0-5) Urine WBC (0-5) Ur Epithelial Cells Amorphous Sediment Urine Bacteria Urine Mucus 05/14/20 05/14/20 05/14/20 Range/Units 09:39 09:39 09:50 WBC (4.5-11.0) K/uL RBC (3.30-5.50) M/uL Hgb (12.0-15.0) g/dL Hct (36.0-48.0) % MCV (80-98) fL MCH (27-31) pg MCHC (32-36) % Plt Count (150-400) K/uL Neut % (Auto) (36-66) % Lymph % (Auto) (24-44) % [place] % (Auto) (2-6) % Eos % (Auto) (2-4) % Baso % (Auto) (0-1) % D-Dimer, Quantitative (0.0-500.0) ng/mL Sodium (140-148) mmol/L Potassium (3.6-5.2) mmol/L Chloride (100-108) mmol/L Carbon Dioxide (21-32) mmol/L Anion Gap (5.0-14.0) mmol/L BUN (7-18) mg/dL Creatinine (0.6-1.0) mg/dL Est Cr Clr Drug Dosing mL/min Estimated GFR (MDRD) (>60) Glucose (74-106) mg/dL Calcium (8.5-10.1) mg/dL Total Bilirubin (0.2-1.0) mg/dL AST (15-37) U/L ALT (12-78) U/L Alkaline Phosphatase (46-116) U/L Troponin I < 0.017 (0.000-0.056) ng/mL NT-Pro-B Natriuret Pep 227 (5-450) pg/mL Total Protein (6.4-8.2) g/dL Albumin (3.4-5.0) g/dL Globulin (2.3-3.5) g/dL Albumin/Globulin Ratio (1.2-2.2) Urine Color Yellow (YELLOW) Urine Appearance Clear (CLEAR) Urine pH 5.0 (5.0-8.0) Ur Specific [place] 1.020 (1.008-1.030) Urine Protein Negative (NEGATIVE) mg/dL Urine Glucose (UA) Negative (NEGATIVE) mg/dL Urine Ketones Negative (NEGATIVE) mg/dL Urine Occult Blood Small H (NEGATIVE) Urine Nitrite Negative (NEGATIVE) Urine Bilirubin Negative (NEGATIVE) Urine Urobilinogen 0.2 (0.2-1.0) EU/dL Ur Leukocyte Esterase Trace H (NEGATIVE) Urine RBC 0-5 (0-5) Urine WBC 5-10 H (0-5) Ur Epithelial Cells Moderate Amorphous Sediment Few Urine Bacteria Rare Urine Mucus Rare - Re-Assessments/Exams Free Text/Narrative Re-Assessment/Exam: 05/14/20 12:12 pt had a chest xray which appeared clear. Her ekg showed a sinus ricardo without st changes, her trop was normal. She had a echo in [place] and the only finding that looked sig was a dilated left atrium. Her ejection was good. Departure - Departure Time of Disposition: 12:13 Disposition: Home, Self-Care 01 Condition: Fair Clinical Impression: Chest wall pain, Angina of effort Referrals: Jeovany Brown MD [Primary Care Provider] - Forms: ED Department Discharge Care Plan Goals: rtc for a lexiscan, tylenol for the chest wall tenderness, schedule appt with cardiology in [place] for a followup visit. rtc if her situation should get wo rse. Sepsis Event Note (ED) - Focused Exam Vital Signs: Vital Signs Temp Pulse Resp BP Pulse Ox 05/14/20 09:36 36.5 C 62 13 187/78 H 99 05/14/20 09:31 36.5 C 62 13 187/78 H 99 - My Orders Last 24 Hours: My Active Orders 05/14/20 09:27 EKG Documentation Completion [RC] ASDIRECTED EKG 12 Lead [EK] Routine - Assessment/Plan Last 24 Hours: My Active Orders 05/14/20 09:27 EKG Documentation Completion [RC] ASDIRECTED EKG 12 Lead [EK] Routine
[2020-05-14 09:32] VITALS: BP 187/78; PULSE 62
--- NOTE | 2020-05-14 10:42 | CR ---
CHEST: Portable 05/14/2020 at 10:34 AM CLINICAL HISTORY:SOB COMPARISON:2017 FINDINGS: The heart size, pulmonary vascularity and hilar structures are normal. No infiltrate effusion or pneumothorax is seen. IMPRESSION: No acute cardiopulmonary process.
== END 2020-05-14 13:04 | disposition home or self-care (01) ==
LOC: JP.ED 09:15
DX: I20.8 Other forms of angina pectoris (principal); I48.91 Unspecified atrial fibrillation; E78.00 Pure hypercholesterolemia, unspecified; J44.9 Chronic obstructive pulmonary disease, unspecified; I12.9 Hypertensive chronic kidney disease with stage 1 through stage 4 chronic kidney disease, or unspecified chronic kidney disease; N18.9 Chronic kidney disease, unspecified; E66.9 Obesity, unspecified; Z91.030 Bee allergy status; Z91.09 Other allergy status, other than to drugs and biological substances; Z79.01 Long term (current) use of anticoagulants; Z79.899 Other long term (current) drug therapy
CPT/HCPCS: 36415; 71045; 71045-26; 80053; 81001; 83880; 84484; 85025; 85379; 93005; 93018; 99284; 99285-25

== ENCOUNTER 2021-05-08 09:32 | Emergency (ER) | payer MEDICARE ==
[2021-05-08 09:36] VITALS: BP 159/56; PULSE 71
== END 2021-05-08 12:22 | disposition home or self-care (01) ==
LOC: JP.ED 09:32
DX: K57.32 Diverticulitis of large intestine without perforation or abscess without bleeding (principal); I48.91 Unspecified atrial fibrillation; I10 Essential (primary) hypertension; K21.9 Gastro-esophageal reflux disease without esophagitis; E66.9 Obesity, unspecified; Z79.899 Other long term (current) drug therapy; Z91.030 Bee allergy status; Z91.09 Other allergy status, other than to drugs and biological substances
CPT/HCPCS: 36415; 74176; 74176-26; 80053; 81001; 85025; 99282; 99284-25

== ENCOUNTER 2022-08-31 22:53 | Emergency (ER) | payer MEDICARE ==
[2022-08-31 23:14] LABS: BASOPHILS ABSOLUTE AUTO 0.05 K/uL (0.00-0.10); BASOPHILS PERCENT AUTO 0.8 % (0.1-1.3); EOSINOPHILS ABSOLUTE AUTO 0.21 K/uL (0.00-0.40); EOSINOPHILS PERCENT AUTO 3.3 % (0.0-5.4); HEMATOCRIT 36.8 % (34.3-46.0); HEMOGLOBIN 11.5 g/dL (11.2-15.5); IMMATURE GRAN PERCENT AUTO 0.2 % (0.0-0.7); LYMPHOCYTES ABSOLUTE AUTO 1.52 K/uL (0.8-3.3); MEAN CORPUSCULAR HEMOGLOBIN 27.5 pg (31.6-35.5); MEAN CORPUSCULAR HGB CONC 31.3 g/dL (31.6-35.5); MONOCYTES ABSOLUTE AUTO 0.56 K/uL (0.20-0.90); MONOCYTES PERCENT AUTO 8.8 % (3.3-12.6); NEUTROPHILS ABSOLUTE AUTO 3.98 K/uL (1.0-7.6); NEUTROPHILS PERCENT AUTO 62.9 % (40.0-78.1); PLATELET COUNT,PLT 228 K/uL (130-375); RED BLOOD CELL COUNT 4.18 M/uL (3.77-5.24); WHITE BLOOD CELL COUNT,WBC 6.3 K/uL (3.2-11.0)
[2022-08-31 23:37] LABS: IMMATURE GRAN ABSOLUTE AUTO 0.01 K/uL (0.00-0.23)
[2022-08-31 23:44] LABS: ALANINE AMINOTRANSFERASE,ALT 29 U/L (12-78); ALBUMIN 3.3 g/dL (3.4-5.0); ALKALINE PHOSPHATASE 117 U/L (46-116); ASPARTATE AMNIOTRANSFERASE,AST 24 U/L (15-37); BILIRUBIN TOTAL 0.3 mg/dL (0.2-1.0); BLOOD UREA NITROGEN,BUN 18 mg/dL (7-18); C-REACTIVE PROTEIN 0.43 mg/dL (0.0-0.3); CALCIUM 8.9 mg/dL (8.5-10.1); CARBON DIOXIDE,CO2 27 mmol/L (21-32); CHLORIDE,CL 104 mmol/L (100-108); EST CRCL DRUG DOSING (CG) 32.77 mL/min; ESTIMATED GFR 57 mL/min (>60); GLUCOSE RANDOM 109 mg/dL (74-106); POTASSIUM,K 4.6 mmol/L (3.6-5.2); PROTEIN TOTAL,TP 6.6 g/dL (6.4-8.2); SODIUM,NA 137 mmol/L (140-148); TROPONIN I HIGH SENSITIVITY 9.1 pg/mL (<=60.3)
[2022-08-31 23:45] LABS: ANION GAP 10.6 mmol/L (5.0-14.0)
[2022-09-01 00:14] LABS: INR 1.1; PROTHROMBIN TIME 11.4 sec (9.2-10.6); PTT,PARTIAL THROMBOPLSTIN TIME 35.9 sec (21.8-27.3)
[2022-09-01 01:19] VITALS: BP 167/62; PULSE 59
== END 2022-09-01 01:15 | disposition home or self-care (01) ==
LOC: JP.ED 22:53
DX: R07.89 Other chest pain (principal); F41.9 Anxiety disorder, unspecified; R20.0 Anesthesia of skin; R20.2 Paresthesia of skin; J44.9 Chronic obstructive pulmonary disease, unspecified; K21.9 Gastro-esophageal reflux disease without esophagitis; I12.9 Hypertensive chronic kidney disease with stage 1 through stage 4 chronic kidney disease, or unspecified chronic kidney disease; N18.9 Chronic kidney disease, unspecified; E66.9 Obesity, unspecified; Z79.01 Long term (current) use of anticoagulants; Z91.030 Bee allergy status; Z91.048 Other nonmedicinal substance allergy status; Z79.899 Other long term (current) drug therapy; Z68.34 Body mass index [BMI] 34.0-34.9, adult
CPT/HCPCS: 36415; 70450; 71046; 71046-26; 80053; 83880; 84484; 85025; 85379; 85610; 85730; 86140; 93005; 99285

== ENCOUNTER 2023-07-28 06:16 | Day surgery (SDC) | payer MEDICARE ==
[2023-07-28] MEDS: Sodium Chloride 0.9% 10 ML Syringe FLUSH PRN (07:12)
[2023-07-28 07:52] VITALS: BP 135/57; PULSE 56
== END 2023-07-28 08:17 | disposition home or self-care (01) ==
LOC: JP.SDS 06:16
PROVIDERS: ATTEND Ophthalmology
DX: H25.12 Age-related nuclear cataract, left eye (principal); I10 Essential (primary) hypertension; Z91.030 Bee allergy status
CPT/HCPCS: J3490; V2632

== ENCOUNTER 2024-06-30 23:06 | Emergency (ER) | payer MEDICARE ==
[2024-06-30] MEDS: Acetaminophen 500 MG Tab PO ONE (23:23)
[2024-07-01 00:17] VITALS: BP 134/55; PULSE 68
== END 2024-07-01 00:42 | disposition home or self-care (01) ==
LOC: JP.ED 23:06
DX: M79.671 Pain in right foot (principal); I10 Essential (primary) hypertension; J44.9 Chronic obstructive pulmonary disease, unspecified; E66.9 Obesity, unspecified; Z68.32 Body mass index [BMI] 32.0-32.9, adult; Z90.49 Acquired absence of other specified parts of digestive tract; Z91.030 Bee allergy status; Z91.048 Other nonmedicinal substance allergy status; Z79.4 Long term (current) use of insulin; Z79.01 Long term (current) use of anticoagulants; Z79.899 Other long term (current) drug therapy
CPT/HCPCS: 73630; 99284; A9270